=== PATIENT | female | born 1990 | race Caucasian/White ===

== ENCOUNTER 2017-08-18 21:27 | Emergency (ER) | payer OTHER ==
[~2017-08-18] VITALS: Ht 160 cm; Wt 108.3 kg
[~2017-08-18 21:27] MED LIST: TRIA.1%T TOP; Z.0.NO CURRENT MEDS
[2017-08-18 22:32] VITALS: BP 136/92; PULSE 90; RESP 16; TEMP 98.4; O2SAT 99
[2017-08-19] MEDS ORDERED: SODIUM CHLORIDE 0.9% FLUSH 10 ML FLUSH IV FLUSH PRN (01:45)
[2017-08-19] MEDS ORDERED: diphenhydrAMINE HCL 50 MG/ML VIAL IVP ONE (01:45)
[2017-08-19] MEDS ORDERED: FAMOTIDINE 20 MG/2 ML VIAL IV PUSH ONE (01:45)
[2017-08-19] MEDS ORDERED: methylPREDNISolone SOD SUCC 125 MG/2 ML VIAL IV PUSH ONE (01:45)
[2017-08-19] MEDS ORDERED: MEDR4PAK PO (01:47)
[2017-08-19] MEDS ORDERED: EPIP0.3I IM (01:47)
--- NOTE | 2017-08-19 01:49 | PD ---
HPI Chief Complaint: Allergic/Adverse Reaction Time Seen by Provider: 01:42 Travel History International Travel<30 days: No Contact w/Intl Traveler<30days: No Traveled to known affect area: No History of Present Illness HPI 26-year-old female presents to the emergency department by private transportation to care family for evaluation of urticarial allergic reaction after being exposed to new laundry detergent Arm and Hammer laundry detergent. Patient states where she was wearing a shirt that had been washed by the arm and hammer laundry detergents she developed hive rash. Patient put some topical steroid cream on it without symptomatically. Patient denies lip or tongue or throat swelling. Patient has had no shortness of breath or wheezing. No chest pain or near syncope or syncope. No nausea vomiting crampy abdominal pain or diarrhea. No previous history of allergic reaction. Patient denies previous similar symptoms. She denies any chronic medical conditions. Patient rates pain 0/10 intensity. Majority of rashes on both upper extremities and neck area. PFSH Past Medical History Narrative Medical Immunizations current; tympanostomy; no tobacco use alcohol use or substance use ; nursing notes reviewed Diminished Hearing: No Headaches: Yes Immunizations Current: Yes Past Surgical History Ear Surgery: Yes (TUBES IN BOTH EARS A BABY) Tympanostomy Tube: Yes Social History Alcohol Use: No Tobacco Use: No Substance Use: No Allergies-Medications (Allergen,Severity, Reaction): Coded Allergies: No Known Allergies (Verified Adverse Reaction, Unknown, 08/19/17) Reported Meds & Prescriptions Reported Meds & Active Scripts Active No Active Prescriptions or Reported Medications Review of Systems Except as stated in HPI: all other systems reviewed are Neg Physical Exam Narrative GENERAL: Well-developed well-nourished female no acute distress no respiratory distress; no stridor no hoarseness SKIN: Warm and dry. Diffuse bilateral upper extremity urticaria and neck urticaria HEAD: Normocephalic. EYES: No scleral icterus. No injection or drainage. ENT: Mucous membranes moist no angioedema. NECK: Supple, trachea midline. No JVD or lymphadenopathy. CARDIOVASCULAR: Regular rate and rhythm without murmurs, gallops, or rubs. RESPIRATORY: Breath sounds equal bilaterally. No accessory muscle use. GASTROINTESTINAL: Abdomen soft, non-tender, nondistended. MUSCULOSKELETAL: No cyanosis, or edema. BACK: Nontender without obvious deformity. No CVA tenderness. Data Data Last Documented VS Vital Signs Date Time Temp Pulse Resp B/P (MAP) Pulse Ox O2 Delivery O2 Flow Rate FiO2 08/19/17 01:58 77 18 120/63 (82) 99 Room Air 08/18/17 22:32 98.4 Orders Orders Ecg Monitoring (08/19/17 01:42) Iv Access Insert/Monitor (08/19/17 01:42) Oximetry (08/19/17 01:42) Diphenhydramine Inj (Benadryl Inj) (08/19/17 01:45) Methylprednisolone So Succ Inj (Solumedr (08/19/17 01:45) Famotidine Inj (Pepcid Inj) (08/19/17 01:45) Sodium Chloride 0.9% Flush (Ns Flush) (08/19/17 01:45) MDM Medical Decision Making Medical Screen Exam Complete: Yes Emergency Medical Condition: Yes Medical Record Reviewed: Yes Differential Diagnosis Urticaria, acute allergic reaction, contact dermatitis; no angioedema no anaphylaxis Narrative Course IV access obtained; patient placed on monitor Benadryl, Pepcid, Solu-Medrol administered At 2:52 AM urticaria has resolved patient stable for outpatient management and follow-up with primary care provider patient is provided prescription for Medrol Dosepak and EpiPen encouraged to not use/avoid Arm and Hammer detergent in the future. Diagnosis Primary Impression: Acute allergic reaction Qualified Codes: T78.40XA - Allergy, unspecified, initial encounter Referrals: Primary Care Physician call for appointment Patient Instructions: General Instructions Additional Instructions: Do Not use Arm and Hammer detergent Use Benadryl every 4-6 hours as needed for hives or itching Take Zantac 150 twice daily for 7 days Wash all clothing linens and other items that had been previously washed and arm and Hammer detergent and another laundry detergent and do not wear any items or use any items that had been washed with the arm and Hammer detergent Return to the emergency department for any concerns or change in condition Med/Other Pt SpecificInfo: Prescription(s) given Scripts No Active Prescriptions or Reported Meds Disposition: 01 DISCHARGE HOME Condition: Stable Rhoda Stewart MD Aug 19, 2017 01:49
[2017-08-19 01:58] VITALS: BP 120/63; PULSE 77; RESP 18; O2SAT 99
[2017-08-19 03:13] VITALS: BP 115/70; TEMP 98.8
== END 2017-08-19 03:15 | disposition home or self-care (01) ==
LOC: PHED 21:27
DX: T78.40XA Allergy, unspecified, initial encounter (principal); L50.0 Allergic urticaria
CPT/HCPCS: 96374; 96375; 99284; J1200; J2930